=== PATIENT | female | born 1940 | race Caucasian/White ===

== ENCOUNTER 2024-02-18 08:29 | Emergency (ER) | payer MEDICARE, OTHER ==
[2024-02-18] MEDS ORDERED: Boostrix 0.5 ML (Tdap) VIAL (>/=7 yrs of age) ONE (09:11)
[2024-02-18] MEDS ORDERED: Lidocaine 1% PF 5 ML VIAL ONE (09:11)
== END 2024-02-18 10:21 | disposition home or self-care (01) ==
LOC: ERS 08:29
DX: S01.01XA Laceration without foreign body of scalp, initial encounter (principal); I10 Essential (primary) hypertension; I48.91 Unspecified atrial fibrillation; Z23 Encounter for immunization; Z79.899 Other long term (current) drug therapy; Z79.01 Long term (current) use of anticoagulants; W19.XXXA Unspecified fall, initial encounter
CPT/HCPCS: 12002; 70450; 72125; 90471; 90715